=== PATIENT | female | born 1975 | race Caucasian/White ===

== ENCOUNTER → 2021-05-12 | Outpatient (CLI) | payer BC | LOC: US 05-10 10:00 | DX: R22.30 Localized swelling, mass and lump, unspecified upper limb (principal) | CPT/HCPCS: 76882 ==

== ENCOUNTER → 2021-08-23 | Outpatient (CLI) | payer BC | LOC: US 08-15 13:30 | DX: R22.31 Localized swelling, mass and lump, right upper limb (principal) | CPT/HCPCS: 76881 ==